=== PATIENT | female | born 1960 ===

== ENCOUNTER 2018-03-17 05:49 | Observation (INO) | payer MEDICAID ==
[2018-03-15 08:37] VITALS: BMI 34.9
[2018-03-17] MEDS ORDERED: Midazolam 2 MG/2 ML VIAL ONE (07:43)
[2018-03-17] MEDS ORDERED: Rocuronium 10 mg/ml (5 ml) ONE ×2 (07:44→10:41)
[2018-03-17] MEDS ORDERED: Propofol 10 mg/ml Inj (20 ML) ONE (07:44)
[2018-03-17] MEDS ORDERED: Succinylcholine Chloride 20 mg/ml Syr (5 ml) IV ONE (07:44)
[2018-03-17] MEDS ORDERED: Bupivacaine 0.5%/Epi 1:200,000 (10 ML SOL) IJ ONE (07:45)
[2018-03-17] MEDS ORDERED: Sodium Chloride 0.9% 20 ML IV ONE (08:19)
[2018-03-17] MEDS: Bupivacaine-Epi 0.5%-1:200,000 PF Inj IJ ONE ×2 (08:32→09:51)
[2018-03-17] MEDS: cefOXitin IV 1 gm in Dextrose 2 GM/100 ML BAG IVPB ONE ×2 (08:34→09:40)
[2018-03-17] MEDS ORDERED: Bupivacaine HCl 0.5% PF (30 ml) Inj ONE (08:39)
[2018-03-17] MEDS ORDERED: Neostigmine Methylsulfate 3mg/3ml Syringe IV ONE ×2 (11:37→11:51)
--- NOTE | 2018-03-17 12:11 | PCM.OP ---
Operative Report - Operative Report Date of Surgery/Procedure: 03/17/18 Time of Surgery/Procedure: 12:08 Surgeon: nova chilel md Player Development Manager: Tomer Rich Anesthesia/Sedation: Gen with ET tube Pre-Operative Diagnosis: Symptomatic fibroid uterus. prolapse utereus. Urinary incontinance. Chronic pelvic pain. REctocele Post-Operative Diagnosis: Symptomatic fibroid uterus. prolapse utereus. Urinary incontinance. Chronic pelvic pain. REctocele Indication for Surgery: worsening symptomatic fibroid uterus Operative Findings: bulky uterus, approx 16 weeks size,. bladder adhessions. periteal adhesions. Rectocele. epical uterine prolapse Procedure/Operation Description: total robotic hysterectomy BSO >250g. Colpopexy uterosacroligament suspenssion. Posterior colporhaphy. Lysis of adhesions. Diagnostic cystoscopy. Detailed Operative Report. This is a 58 years old morbidly obese female with advanced apical uterine prolapse, advanced and rectocele and associated severe pelvic pain. In addition, the patient presented severe urinary dysfunction including urinary incontinence urgency and frequency as well as often urinary retention. The patient completed an extensive preoperative workup, which included an ultrasound, as well as a Pap smear, chemistry and hematology studies. A decision was finally made to proceed with a total robotic assisted hysterectomy, bilateral salpingo- oophorectomy posterior colporrhaphy, and vaginal vault suspension. All options alternative managements were reviewed including non-surgical and uterine preserving options, but a decision was made by the patient to proceed with surgical management, specifically a hysterectomy. A detailed description of this robotic procedure was given to the patient, all risks and benefits of the surgical modality was reviewed, printed material was also given to the patient regarding robotic surgery. The patient fully understood all the risks and benefits and elected to proceed with this proposed procedure. Of note, a detailed description of the alternative modalities of surgical treatment was reviewed with the patient including utilization of mesh product, the patient elected to avoid mesh surgery and desires a primary repair utilizing her own tissue and avoidance of any mesh graft. After proper consent was obtained from the patient was taken to the operating room, proper patient identification was completed. She was placed in dorsal lithotomy position; general anesthesia was induced without difficulty. Her legs were placed in adjustable Suinl stirrups. Careful attention was placed not to over-flex or over-rotate the lower extremities at the hip or the knee joints. She was prepped and draped appropriately for robotic assisted hysterectomy. Muhammad catheter was inserted under sterile conditions. A V-care uterine manipulator was inserted through the cervix and secured. Attention was turned to the patient's abdomen. Local anesthetic solutions of 0.25% Marcaine with epinephrine were utilized to infiltrate the skin prior to all abdominal skin incisions. A total of 15 mL of 0.25% Marcaine was utilized throughout the procedure. While tenting the abdominal wall, a Veres needle was inserted through the umbilicus and a pneumo- peritoneum was obtained. Approximately at around the umbilical fold, a small incision was made with a scalpel and a laparoscopic trocar and sleeve were introduced. A robotic camera was inserted through this trocar and an initial survey of the patient's pelvic and abdomen revealed a bulky enlarged fibroid uterus approximately 16-18 weeks in size. Severe pelvic and abdominal adhesions. Severe bladder adhesions from prior possibly. The patient was placed in Trendelenburg position ready for a da Nevin robotic system to be docked. 3 robotic ports were utilized for this procedure. The first robotic port was placed on the patient's right side approximately 5 cm above the right superior iliac crest where a small skin incision approximately 8 mm was made. The second robotic port was in the patient's left side approximately 5 cm superior to the left superior iliac crest. A small incision approximately 1 cm was made in into the left upper quadrant and an electrician's assistant laparoscopic port was inserted. All robotic ports were approximately 8 mm in size, the electrician's assistant and the camera ports were 1 cm in size. For the electrician's assistant and camera ports we utilized the Versa-step trocar system. All trocars were inserted under direct visualization. The placement of the trocars was accomplished under careful and meticulous placement under direct visualization. Following the placement of all trocars, the da Nevin robotic system was docked in a parallel method without difficulty. The following instruments were utilized for this procedure : the PK sealing device, a monopolar kev and finally a ProGrasp. Meticulous and careful lysis of adhesions and enterolysis was completed utilizing the monopolar kev and PK. Prior to the start of the hysterectomy, both ureters and their courses were visualized following the opening of the retroperitoneum and exploration of the ureters completed to avoid compromise of the ureters, following the exploration of the ureters, both ureters were peristalsing without difficulty. Prior to the start of the hysterectomy, Extensive lysis of adhesions and enterolysis was necessary to complete the procedure. On the patient's right side, the round ligament was identified cauterized and transected. The IP ligament was cauterized and transected. The broad ligament was divided all the way down to the utero cervical junction bladder flap was then created by transecting the visceroperitoneum over the bladder reflection. In a similar fashion, the left round ligament, IP ligament and broad ligament were cauterized sealed and transected, taken down to the level of the cervical uterine junction. Uterine vessels on both sides were sealed and transected. The Uterosacral ligaments were sealed and transected. The monopolar kev and PK were utilized to complete the colpotomy incision around the care vaginal ring. Excellent hemostasis was noted. The uterus, cervix and fallopian tubes and ovaries were delivered transvaginal through the colpotomy incision and sent to pathology for permanent analysis. The colpotomy incision was closed with 2-0 v LOC in a continuous fashion with excellent hemostasis. The vaginal vault suspension was achieved by suspending the vaginal cuff to the base of the uterosacral ligaments bilaterally. Prior to the uterosacral ligament suspension , the ureters were once again identified to avoid possible compromise or kinking while suspending the vaginal vault. Meticulous dissection carried out to dissect out the ureters bilaterally to avoid kinking of the ureters with the suspension procedure. A 2-0 Sl[place]ton-Mukesh suture material was utilized to suspend the uterosacral ligaments from the base to the vaginal vault cuff incision including both anterior and posterior aspect of the colpotomy incision. Utilizing a 3-0 Monocryl suture, the peritoneum over the colpotomy incision and uterosacral ligaments was re-approximated in a continuous fashion. The abdomen was throughout irrigated and cleared of all clots and debris. Hood-Seal as well as Interceed was applied to the incision sites. Excellent hemostasis was again noted. All robotic and laparoscopic instruments removed under direct visualization. The robotic arms were undocked, and a da Nevin robotic system was wheeled away from the patient's bedside. Both electrician's assistant and camera ports were closed at the fascial layer utilizing 0 Vicryl suture material in interrupted fashion. Pneumo-peritoneum was reduced and all skin incisions were closed utilizing 4-0 Monocryl in a subcutaneous fashion. Dermabond was applied to all incisions. Attention was then turned to the patients vagina for the repair of the cystocele and rectocele. A midline longitudinal incision was made into the anterior vaginal wall meticulous dissection the vaginal wall from the bladder was accomplished. Utilizing 0 Vicryl suture material in interrupted fashion and anterior defect was reapproximated in interrupted fashion. Excellent hemostasis was noted. In a similar fashion the posterior vaginal wall was read imbricated and the posterior vaginal defect was significantly reduced the vaginal mucosa was trimmed off Reduced a redundancy the vaginal mucosa was closed with 2-0 Vicryl in continuous fashion. Vaginal packing was inserted to be removed next morning. Due to the complexity of this hysterectomy, the extensive of the peritoneal and bowel adhesions and finally the distorted pelvic anatomy, a diagnostic cystoscopy was completed. The Muhammad catheter was removed; the bladder was distended with approximately 350 cc of normal saline. A 30 cystoscope was introduced and a survey of the bladder anatomy was completed. The base, and the dome of the bladder appeared normal, both ureteral orifices appeared normal and were effluxing urine freely. The urethra appeared normal. A Muhammad catheter was reinserted. Patient emerged from general anesthesia without difficulty, and was taken to recovery room in stable condition. Prior to incision the patient received antibiotics, prior to closure sponge lap and needle counts were correct x2. Estimated Blood Loss: 50 Blood Replaced: none Sponge/Instrument Count: Count was correct 2 Drains: None Complications: none Specimen: uterus cevrix tubes and ovaries Discharge & Condition: Patient was discharged home on postoperative day #1 stable condition
[2018-03-17] MEDS ORDERED: HYDROmorphone 1 mg/ml ISec IVP PRN (12:20)
[2018-03-17] MEDS ORDERED: Lactated Ringer's 1,000 ML IV SCH (12:30)
[2018-03-17] MEDS: HYDROmorphone 0.5 mg/0.5 ml ISec IVP PRN ×2 (12:34→12:48)
[2018-03-17] MEDS ORDERED: Clindamycin 2% Vaginal Cream(40 gm) ONE (12:35)
[2018-03-17] MEDS ORDERED: Morphine 4 MG/ML VIAL IVP PRN (13:06)
[2018-03-17 16:08] VITALS: O2SAT 97
[2018-03-17] MEDS ORDERED: cefOXitin IV 2 gm in Dextrose 2 GM/50 ML BAG IVPB SCH (17:40)
[2018-03-17] MEDS ORDERED: cefOXitin IV 2 gm in Saline 2 GM/50 ML BAG IVPB ONE (17:48)
[2018-03-17] MEDS: cefOXitin 2 GM in Sodium Chloride 0.9% 100 ML IVPB SCH (17:54)
[2018-03-17] MEDS: Oxycodone/Acetaminophen 5/325 mg Tab PO PRN (18:04)
[2018-03-18] MEDS: Oxycodone/Acetaminophen 5/325 mg Tab PO PRN ×3 (00:04→10:16)
[2018-03-18] MEDS: cefOXitin 2 GM in Sodium Chloride 0.9% 100 ML IVPB SCH ×2 (02:30→10:19)
[2018-03-18 08:50] LABS: HEMOGLOBIN 12.7 g/dL (11.0-16.0); MEAN CELL VOLUME 84.3 fL (81.0-99.0); MEAN CORPUSCULAR HEMOGLOBIN 28.4 pg (27.0-31.0); MEAN CORPUSCULAR HGB CONC 33.6 g/dL (33.0-37.0); RBC 4.48 Mil/uL (3.80-5.20); RED CELL DISTRIBUTION WIDTH 14.4 % (11.5-14.5); WHITE BLOOD COUNT 10.4 K/uL (4.8-10.8)
[2018-03-18 09:04] LABS: BLOOD UREA NITROGEN 12 mg/dL (7-17); CALCIUM 8.5 mg/dl (8.6-10.4); GFR AFRICAN-AMERICAN > 60; GFR NON-AFRICAN AMERICAN > 60
--- NOTE | 2018-03-18 09:32 | CP.PCM.PN ---
Subjective - Date & Time of Evaluation Date of Evaluation: 03/18/18 Time of Evaluation: 10:11 - Subjective Subjective: Patient states she has pain but controlled with medication. +void/pass gas/john PO Objective - Vital Signs/Intake and Output Vital Signs (last 24 hours): Temp Pulse Resp BP Pulse Ox 97.4 F L 93 H 20 111/72 97 03/18/18 00:00 03/18/18 00:00 03/18/18 00:00 03/18/18 00:00 03/18/18 00:00 - Medications Medications: Current Medications Lactated Ringer's (Lactated Ringer's) 1,000 mls @ 100 mls/hr IV .Q10H FABIO Cefoxitin Sodium 2 gm/ Sodium (Chloride) 100 mls @ 50 mls/hr IVPB Q8H FABIO PRN Reason: Protocol Stop: 03/18/18 11:59 Last Admin: 03/18/18 02:30 Dose: 50 mls/hr Morphine Sulfate (Morphine) 2 mg IVP Q4 PRN PRN Reason: Pain, severe (8-10) Ondansetron HCl (Zofran Inj) 4 mg IVP ONCE PRN PRN Reason: Nausea/Vomiting Oxycodone/Acetaminophen (Percocet 5/325 Mg Tab) 2 tab PO Q4H PRN PRN Reason: Pain, moderate (4-7) Stop: 03/20/18 12:21 Last Admin: 03/18/18 04:07 Dose: 2 tab - Labs Labs: 03/18/18 08:45 03/18/18 08:45 - GI/Abdominal Exam GI & Abdominal Exam: Distended (mild distension, soft, patient OOB), Tenderness , Hypoactive Bowel Sounds - Exam Additional comments: packing removed Assessment and Plan (1) Chronic pelvic pain in female Assessment & Plan: d/c home today rx percocet f/u 2 weeks colace 100mg PO TID while taking pain medication call for increased pain or bleeding encourage OOB d/w Dr. Benavidez, agrees with above [place] [employer] patient report reviewed, no CDS. Patient counseled on the risks of addiction, physical or psychological dependence, and overdose associated with opioid drugs and the danger of taking opioid drugs with alcohol and other central nervous system depressants, and cautioned patient on storage and disposal. Status: Acute (2) Fibroid uterus Status: Acute (3) Uterine prolapse Status: Acute (4) Urinary incontinence Status: Acute (5) Rectocele Status: Acute
[2018-03-18 12:43] VITALS: BP 116/68; PULSE 76; RESP 76; TEMP 98.3
== END 2018-03-18 12:40 | disposition home or self-care (01) ==
LOC: C.SDS 05:49 → C.9S 12:20 → C.4M 13:42
PROVIDERS: ADMIT Obstetrics & Gynecology; ATTEND Obstetrics & Gynecology
DX: D25.9 Leiomyoma of uterus, unspecified (principal); K66.0 Peritoneal adhesions (postprocedural) (postinfection); N95.0 Postmenopausal bleeding; R10.2 Pelvic and perineal pain; G89.29 Other chronic pain; N81.4 Uterovaginal prolapse, unspecified; E66.9 Obesity, unspecified; Z68.34 Body mass index [BMI] 34.0-34.9, adult; G47.33 Obstructive sleep apnea (adult) (pediatric); G47.00 Insomnia, unspecified; N39.41 Urge incontinence; R33.9 Retention of urine, unspecified; N80.0 Endometriosis of uterus
CPT/HCPCS: 36415; 49329; 52000; 57250; 57425; 58573; 80048; 85027; 86850; 86900; 88309; C2615; G0378; J0694; J1170; J2001; J2250; J2405; J2704; J2710; J3010; S2900